=== PATIENT | female | born 1940 ===

== ENCOUNTER 2017-10-31 09:50 | Day surgery (SDC) | payer MEDICARE, OTHER ==
[~2017-10-31] VITALS: Ht 154.9 cm; Wt 72.3 kg
[~2017-10-31 09:50] MED LIST: 8 HOUR650 MG PO; ASCO500 PO; ATOR10 PO; ATORVASTATIN CA10 MG PO; AZO CRANBERRY250 MG PO; Advil200 M1 PO; Artificial Tea1 EACH BOTHEYES; Ativan1 MG PO; CALCAVITD PO; CHOL10002; Calcium Magnes1 EAC1 PO; DEEP SEA44 ML NS; ELIQUIS5 MG PO; FISH OIL 500 M1 EAC3 PO; Fish Oil300 MG PO; GARLIC PO; GLUC500 PO; Garlic Oil1000 MG PO; Glucosamine H1500 MG PO; IBUP400 PO; KETOROLAC TROMET5 ML OP; LORA1 PO; LOSARTAN POTASS50 MG PO; LOSARTAN-HCTZ1 EACH PO; METO50ER PO; MULVITMIND PO; Multiple Vitam1 EACH PO; NIAC500 PO; OMEPRAZOLE MAGN20 MG PO; OPTLUBOPO BOTHEYES; POTASSIUM GLU2.5 MEQ PO; POTASSIUM GLUC500 MG PO; PROBIOTIC1 EAC1 PO; PROBIOTIC1 EAC3 PO; ZINC15
== END 2017-10-31 12:00 | disposition home or self-care (01) ==
LOC: ORSCSDS 09:50
PROVIDERS: Surgery
PROC: 0DBH8ZX Excision of Cecum, Via Natural or Artificial Opening Endoscopic, Diagnostic (ICD-10-PCS; principal; 2017-10-31 11:00)
DX: Z12.11 Encounter for screening for malignant neoplasm of colon (principal); D12.0 Benign neoplasm of cecum; K57.30 Diverticulosis of large intestine without perforation or abscess without bleeding; I10 Essential (primary) hypertension; E78.5 Hyperlipidemia, unspecified; I48.1 Persistent atrial fibrillation; K21.9 Gastro-esophageal reflux disease without esophagitis; F41.9 Anxiety disorder, unspecified; Z79.01 Long term (current) use of anticoagulants; Z79.899 Other long term (current) drug therapy; Z87.891 Personal history of nicotine dependence
CPT/HCPCS: 88305; 93005; 93010; J7120

== ENCOUNTER → 2018-09-04 | Outpatient (CLI) | payer MEDICARE, OTHER | END | disposition home or self-care (01) | LOC: LAB SHORT 19:43 → LAB 19:43 | DX: N39.0 Urinary tract infection, site not specified (principal) | CPT/HCPCS: 87086 ==

== ENCOUNTER 2019-04-29 14:24 | Inpatient (IN) | payer MEDICARE, OTHER ==
[~2019-04-29] VITALS: Ht 152.4 cm; Wt 81.9 kg
[~2019-04-29 14:24] MED LIST changes: -8 HOUR650 MG PO; -ATOR10 PO; -AZO CRANBERRY250 MG PO; -Artificial Tea1 EACH BOTHEYES; -Ativan1 MG PO; -ELIQUIS5 MG PO
[2019-04-29] MEDS ORDERED: METO50ER PO (15:46)
[2019-04-29] MEDS ORDERED: ATOR10 PO (15:46)
[2019-04-29] MEDS ORDERED: FUROSEMIDE20 MG PO (15:48)
[2019-04-29] MEDS ORDERED: POTA10T PO (15:48)
[2019-04-29] MEDS ORDERED: LOSARTAN POTASS50 MG PO (15:48)
[2019-04-29] MEDS ORDERED: CALC.25 PO (15:50)
[2019-04-29] MEDS ORDERED: ELIQUIS5 MG PO (15:51)
[2019-04-29 15:55] LABS: BASOPHILS ABSOLUTE AUTO 0.02 K/mm3 (0.00-0.23); BASOPHILS PERCENT AUTO 0 % (0-2); EOSINOPHILS PERCENT AUTO 2 % (0-6); Hematocrit 37.5 % (33.0-51.0); IMMATURE GRAN ABSOLUTE AUTO 0.04 K/mm3 (0.00-0.10); IMMATURE GRAN PERCENT AUTO 1 % (0-1); LYMPHOCYTES PERCENT AUTO 16 % (21-46); MONOCYTES ABSOLUTE AUTO 1.18 K/mm3 (0.16-1.47); MONOCYTES PERCENT AUTO 13 % (4-13); Mean Corpuscular HGB 29.7 pg (26.0-34.0); Mean Corpuscular Volume 93 fL (80-100); Mean Platelet Volume 9.4 fL (9.1-12.4); NEUTROPHILS ABSOLUTE AUTO 6.03 K/mm3 (1.96-9.15); NEUTROPHILS PERCENT AUTO 68 % (41-73); Platelet Count 358 K/mm3 (150-400); RDW Coefficient Variation 14.3 % (11.7-14.2); Red Blood Cell Count 4.04 M/mm3 (3.80-5.20); White Blood Cell Count 8.87 K/mm3 (4.00-11.30)
[2019-04-29] MEDS ORDERED: Ativan1 MG PO (16:10)
[2019-04-29] MEDS ORDERED: ACET500 PO (16:10)
[2019-04-29] MEDS ORDERED: AZO CRANBERRY250 MG PO (16:10)
[2019-04-29] MEDS ORDERED: Artificial Tea1 EACH BOTHEYES (16:11)
[2019-04-29] MEDS ORDERED: SODCHL1 PO (16:12)
[2019-04-29] MEDS ORDERED: Allergy25 M1 PO (16:13)
[2019-04-29] MEDS ORDERED: TOBRADEX ST EYE5 ML LEFTEYE (16:15)
[2019-04-29 16:28] LABS: Alanine Aminotransfer (ALT/SGP 25 U/L (12-78); Albumin, Blood 3.3 g/dL (3.4-5.0); Albumin/Globulin Ratio 0.9 (0.8-1.8); Alk Phos 62 U/L (50-136); Anion Gap 6 mmol/L (6-16); Aspartate Aminotrans (AST/SGOT 19 U/L (12-37); Bilirubin, Total 0.6 mg/dL (0.1-1.0); Blood Urea Nitrogen 13 mg/dL (8-24); Bun/Creatinine Ratio 14.5 (12.0-20.0); CO2, Blood 25 mmol/L (21-32); Calcium, Blood 8.8 mg/dL (8.5-10.1); Chloride, Blood 104 mmol/L (98-108); Globulin, Blood 3.7 g/dL (2.2-4.0); Glomerular Filtration Rate >60 (60-); Glucose, Blood 115 mg/dL (70-99); Sodium, Blood 135 mmol/L (136-145)
[2019-04-29] MEDS ORDERED: VITAMIN C 500500 MG PO (20:06)
[2019-04-29] MEDS ORDERED: METO25ER PO (20:08)
[2019-04-29] MEDS ORDERED: ELIQUIS5 M2 PO (20:09)
--- NOTE | 2019-04-30 04:37 | NUR ---
SHIFT SUMMARY: PATIENT ARRIVED TO [facility] AT APPROX 1944 THIS SHIFT VIA GURNEY FROM ER. PATIENT ALERT AND ORIENTED WITH AT BEDSIDE. PATIENT ABLE TO PIVOT TRANSFER FROM GURNEY TO BED WITH 2 PERSON ASSIST, PATIENT SOB AND VERY ANXIOUS (O2 SATURATIONS >94%). PATIENT ADMISSION COMPLETED. PATIENT ORIENTED TO CALL LIGHT, HOSPITAL POLICIES AND UNIT. PATIENT CARDIZEM DRIP INCREASED TO 15ML/HR D/T SUSTAINED HR RANGING FROM 140 BPM TO 170 BPM. APPROX 0200 PATIENT HR HAS SLOWLY DECREASED TO A RANGE FROM 90'S TO 110 BPM, CARDIZEM TURNED DOWN TO 10ML/HR. PATIENT BREATHING IS SLOWER AND MORE EFFECTIVE AND PATINET ABLE TO GET TO BSC WITH ONLY 1 PERSON MINIMAL ASSIST. PATIENT HAS FREQUENT NEED TO URINATE, APPROX EVERY 30 MINUTES TO 1 HOUR. VSS, CALL LIGHT WITHIN REACH, BED LOW AND LOCKED AND AT BEDSIDE.
[2019-04-30 05:06] LABS: Bun/Creatinine Ratio 18.8 (12.0-20.0); Calcium, Blood 8.7 mg/dL (8.5-10.1); Creatinine, Blood 0.96 mg/dL (0.40-1.00); Potassium, Blood 4.4 mmol/L (3.5-5.5)
--- NOTE | 2019-04-30 19:27 | NUR ---
SHIFT SUMMARY PT A&Ox4, ANXIOUS BUT COOPERTAIVE WITH CARE, MEDICCATED x1 WITH ATIVAN. PT REPORTS FEELING TIRED T/O SHIFT, STATES SHE DID NOT SLEEP, ATTEMPTED TO ALLOW PT TO SLEEP T/O SHIFT, PT CALLED TO GET UP TO BSC OR VISITORS. PT SOB WITH EXERTION, SPO2 >94% ON 2L O2 VIA NC, WHEN ATTEMPTED TO TAKE O2 OFF THIS AM, PT SAT 88-90% ON RA. PT DENIES NAUSEA AND PAIN T/O SHIFT. HR 100-110'S THIS AM, TRENDING UP THIS AFTERNOON 120-130, TITRATED CARDIZEM TO 15MG/HR, AT 1845 AVERAGING 105 PER TELE. BP ELEVATED THIS AFTERNOON, MEDICATED PER EMAR. OTHER VSS. NO OTHER ACUTE CHANGES NOTED DURING SHIFT. WILL CONTINUE TO MONITOR. UNTIL REPORT GIVEN TO ONCOMING RN.
--- NOTE | 2019-05-01 01:57 | NUR ---
IV INFILTRATED AT AROUND 0000 HRS PT'S IV (RIGHT FOREARM) NOTED TO BE INFILTRATED, CARDIZEM DRIP STOPPED. D/T HX THIS VISIT OF MULTIPLE FAILED IV ATTEMPTS CALLED FOR RN EXPERIENCED WITH ULTRASOUND TO START NEW IV. PT'S HR REMAINS BETWEEN 90 AND 100 PER CHANDELIER MAKER FOR 2 HRS OFF CARDIZEM DRIP. WILL CONTINUE TO MONITOR
--- NOTE | 2019-05-01 06:31 | NUR ---
SHIFT SUMMARY PT AWAKE, ALERT AND ORIENTED IN BED AT BEGINNING OF SHIFT, IN ROOM, BUT LEFT FOR HOME AROUND 8PM. STANDBY ASSIST TO COMMODE 4X THIS SHIFT, PT COOPERATING WITH VOIDING SCHED Q2 HRS OR GREATER. PT SOB WITH EXERTION BUT TOLERATING TRANSFERS WELL. PT ON CARDIZEM DRIP AT ONSET OF SHIFT, TITRATED FROM 15 TO 10 MG/HR, THEN DISCONTINUED AND REPLACED WITH ORAL CARDIZEM AROUND 0000 HRS, D/T HR STABLE AT 90-100 CONSISTENTLY. ALL OTHER VSS T/O. AROUND 10PM PT'S IV TO RT FOREARM BECAME INFILTRATED, NEW IV START 20G IN RT ARM W DOPPLER ASSIST, ONE ATTEMPT, NO ISSUES. MEDICATED PER MD ORDER AND UNIT PROTOCOL, WILL CONTINUE TO MONITOR UNTIL PASSING REPORT AND CARE TO ONCOMING SHIFT. BED LOCKED AND LOW, CALL LIGHT W/IN REACH
--- NOTE | 2019-05-01 17:46 | NUR ---
SHIFT SUMMARY PT A&Ox4, ANXIOUS BUT COOPERATIVE WITH CARE. MEDICATED x1 WITH ATIVAN. TEARFUL AT TIMES.PT SBA TO BSC THIS AM,UP TO BR THIS AFTERNOON W/SBA.PT SOB W/EXERTION TITRATED TO RA, THIS AFTERNOON. SPO2 >92% ON RA. RT AT BEDSIDE TO EDUCATED PT WITH FLUTTER AND IS. PT DENIES PAIN AND NAUSEA. PT RECEIVING PO CARDIZEM, PT TELE A/FIB/AFLUTTER 80-110'S FOR MAJORITY OF SHIFT. VSS. NO OTHER ACUTE CHANGES NOTED DURING SHIFT. WILL CONTINUE TO MONITOR UNTIL REPORT GIVEN TO ONCOMING RN.
--- NOTE | 2019-05-01 20:55 | NUR ---
ASSUMED CARE OF PATIENT AT COUNT INCLUDES THE [facility] 190 FROM HEIDY Lowry RN. PATIENT ALERT AND ORIENTED X4; FORGETFUL AT TIMES; SLOW TO RESPOND AT TIMES, ANXIOUS. PATIENT DENIES PAIN, NUMBNESS, TINGLING, DIZZINESS AND NAUSEA. AFLUTTER OR AFIB ON TELE W/ RATE OF 90-110; OXYGEN SATURATION ABOVE 90% ON ROOM AIR; DYSPNEA MOVING IN BED; PATIENT'S REPORTS PATIENT HAS BEEN SOB FOR A WHILE NOW. PATIENT ONE ASSIST W/ FWW OUT OF BED. AT BEDSIDE AT START OF SHIFT, JUST LEFT FOR THE NIGHT. PIV S/L. PATIENT CURRENTLY RESTING IN BED; CALL LIGHT IN REACH; BED IN LOWEST POSISTION; BED ALARM ON; WILL CONTINUE TO MONITOR AND ASSESS UNTIL END OF SHIFT.
--- NOTE | 2019-05-02 06:07 | NUR ---
PATIENT SLEPT ABOUT EIGHT HOURS LAST NIGHT. VSS. NO ACUTE CHANGES TO REPORT. WILL CONTINUE TO MONITOR AND ASSESS UNTIL END OF SHIFT.
--- NOTE | 2019-05-02 09:01 | NUR ---
tearful, nurse reminds her of son who , did not sleep well due to urine urgancy/frequency/lasix, medicated as prescribed, vss, edemonous, call light in reach, rm air, iv flushed no s/sx of infiltration or infection, will continue to monitor and treat as prescribed
--- NOTE | 2019-05-02 17:48 | NUR ---
A+O, COOPERATIVE WITH CARE, LOVES TO TELL JOKES, CALL LIGHT IN REACH, SALINE LOCKED, UP FREQUENTLY TO BATHROOM, 1 PERSON STANDBY ASSIST WITH WALKER AND BELT, MEDICATED PRESCRIBED, WORKED WITH PT AND OT, REMAINS EDEMONUS WITH BRUISES ON BOTH ARMS
[2019-05-02 18:12] LABS: Source, Urine Clean Catch
[2019-05-02 18:33] LABS: Appearance, Urine Hazy (Clear); Bilirubin, Urine Neg (Neg); Blood, Urine 2+ (Neg); Color, Urine Yellow (P-Yellow); Glucose Qualitative, Urine Neg (Neg); Ketones, Urine Neg (Neg); Leukocyte Esterase, Urine 3+ (Neg); Nitrite, Urine Neg (Neg); Protein, Urine 2+ (Neg); Urobilinogen, Urine NORM (Normal)
[2019-05-02 19:10] LABS: Squamous Epithelial Cells Many /hpf (Few); White Blood Cells, Urine TNTC /hpf (0-5)
[2019-05-02 19:11] LABS: Bacteria Mod /hpf
--- NOTE | 2019-05-02 21:45 | NUR ---
ASSUMED CARE OF PATIENT AT [facility] 1905 FROM WAI Gonzalez RN. PATIENT ALERT AND ORIENTED X4; FORGETFUL AT TIMES; SLOW TO RESPOND AT TIMES, ANXIOUS. PATIENT DENIES PAIN, NUMBNESS, TINGLING, DIZZINESS AND NAUSEA. AFLUTTER OR AFIB ON TELE W/ RATE OF 90-110; OXYGEN SATURATION ABOVE 90% ON ROOM AIR. DYSPNEA MOVING IN BED; PATIENT'S AT BEDSIDE FOR FIRST HOUR OF SHIFT. PATIENT ONE ASSIST W/ FWW OUT OF BED. PIV S/L. PATIENT CURRENTLY RESTING IN BED; CALL LIGHT IN REACH; BED IN LOWEST POSISTION; BED ALARM ON; WILL CONTINUE TO MONITOR AND ASSESS UNTIL END OF SHIFT.
--- NOTE | 2019-05-03 06:32 | NUR ---
PATIENT SLEPT ABOUT EIGHT HOURS LAST NIGHT. PATIENT URINATED FREQUENTLY; CONCERNED ABOUT HAVING TO WALK HALLWAY WITH HAIR MESSY; ETYMOLOGY PROFESSOR DID PATIENT'S HAIR. VSS. NO OTHER ACUTE CHANGES TO REPORT. WILL CONTINUE TO MONITOR AND ASSESS UNTIL END OF SHIFT.
--- NOTE | 2019-05-03 09:39 | NUR ---
HEART RATE: PER PCU TECH, PATIENT HR IS IN LOW 100S. CURRENTLY 104. NOTED PRIOR TO AM MEDICATION ADMINISTRATION.
--- NOTE | 2019-05-03 10:40 | NUR ---
MORNING ASSESSMENT: PATIENT REPORTS FEELING BETTER THIS MORNING. DENIES PAIN, SOB OR RESPIRATORY DISTRESS. MILD DYSPNEA NOTED WITH AMBULATION TO THE RESTROOM. PATIENT STEADY ON FEET. USES WALKER AND CALL LIGHT APPROPRIATELY. NO CONFUSION NOTED THIS MORNING. PATIENT CONTINUES TO HAVE HR OVER 100. DR. LITTLE ROUNDED ON PATIENT AND PLACED NEW ORDERS FOR CARDIZEM. PATIENT DENIES CHEST PAIN OR DISCOMFORT. PATIENT AMBULATED TO THE RESTROOM MULTIPLE TIMES AND IN THE HALLWAY WITH PT. PATIENT REQUESTING TO BE ABLE TO REST THIS AM. AT BEDSIDE. ASSISTED TO BED WITH FEET ELEVATED AND PROVIDED A QUIET AND DARK ENVIRONMENT.
[2019-05-03 14:08] LABS: Albumin, Blood 3.2 g/dL (3.4-5.0); Anion Gap 8 mmol/L (6-16); Blood Urea Nitrogen 21 mg/dL (8-24); Bun/Creatinine Ratio 25.3 (12.0-20.0); CO2, Blood 26 mmol/L (21-32); Calcium, Blood 9.5 mg/dL (8.5-10.1); Chloride, Blood 100 mmol/L (98-108); Creatinine, Blood 0.83 mg/dL (0.40-1.00); Glomerular Filtration Rate >60 (60-); Glucose, Blood 115 mg/dL (70-99); Magnesium, Blood 1.8 mg/dL (1.6-2.4); Phosphorus, Blood 4.1 mg/dL (2.5-4.9); Potassium, Blood 4.1 mmol/L (3.5-5.5); Sodium, Blood 134 mmol/L (136-145)
--- NOTE | 2019-05-03 17:36 | NUR ---
END OF SHIFT REPORT: PATIENT REPORTS THAT SHE IS FEELING BETTER TODAY. PATIENT WORKED WITH PT AND HAS WALKED IN THE [place] MULTIPLE TIMES. PATIENT STEADY ON HER FEET. PATIENT CALLING APPROPRIATELY. MILD SOB NOTED AFTER AMBULATION. INCREASE IN HR 10-15 BPM DURING AMBULATION. PATIENT'S HEART RATE HAS IMPROVED WITH THE INCREASE IN CARDIZEM. PATIENT IS NOW IN THE LOW 100S AT REST. PATIENT CONTINUES TO DENY CP OR DISCOMFORT, RESPIRATORY DISTRESS, SOB, OR PAIN. PATIENT IS LOOKING FORWARD TO GOING HOME TOMORROW.
--- NOTE | 2019-05-04 05:20 | NUR ---
SHIFT SUMMARY AOX4. LS DIM IN BASES, DENIES SOB. 94-98% ON RA. NO C/O NAUSEA OR PAIN. 1+ EDEMA IN BLE'S. L FA IV SL. TELE READS AFIB 104. SBA TO BATHROOM. PRN ATIVAN GIVEN @ 0150. NO OTHER PRNS GIVEN. VSS. PLAN IS TO DC TODAY.
[2019-05-04] MEDS ORDERED: DILT180 PO (14:51)
--- NOTE | 2019-05-04 15:53 | NUR ---
PT DISCHARGED AT 1510 WITH FRIEND TO TRANSPORT. PT HAD ALL PAPERS REVIEWED AND EDUCATIONAL MATERIAL SENT. PT HAD IV REMOVED AND WAS ESCORTED VIA WHEEL CHAIR TO [facility]. PERSONAL BELONGING WERE TAKEN WITH HER. NO DISTRESS NOTED, PT WAS AOX4 AND COOPERATIVE WITH ALL CARE.
== END 2019-05-04 15:58 | disposition home or self-care (01) | DRG 308 ==
LOC: ER 14:24 → PCU 14:25
PROVIDERS: Physician Assistant; ADMIT Family Medicine
DX: I48.19 Other persistent atrial fibrillation (principal); J96.01 Acute respiratory failure with hypoxia; I50.33 Acute on chronic diastolic (congestive) heart failure; E87.1 Hypo-osmolality and hyponatremia; I11.0 Hypertensive heart disease with heart failure; E78.5 Hyperlipidemia, unspecified; Z87.891 Personal history of nicotine dependence; Z66 Do not resuscitate
CPT/HCPCS: 36415; 36430; 80048; 80053; 80069; 81001; 83735; 83880; 84443; 84484; 85025; 87077; 87086; 87186; 93005; 93010; 93306; 94640; 94667; 94760; 96365; 96366; 96375; 97116; 97162; 97166; 97530; 97535; 99285-25; A9270; G0378; J0360; J1940

== ENCOUNTER → 2019-08-27 | Outpatient (CLI) | payer MEDICARE, OTHER ==
[~2019-08-27] MED LIST changes: +ACET500 PO; +ATOR10 PO; +AZO CRANBERRY250 MG PO; +Allergy25 M1 PO; +Artificial Tea1 EACH BOTHEYES; +Ativan1 MG PO; +CALC.25 PO; +DILT180 PO; +ELIQUIS5 M2 PO; +ELIQUIS5 MG PO; +FUROSEMIDE20 MG PO; +METO25ER PO; +POTA10T PO; +SODCHL1 PO; +TOBRADEX ST EYE5 ML LEFTEYE; +VITAMIN C 500500 MG PO
== END | disposition home or self-care (01) ==
LOC: LAB SHORT 12:00 → LAB 12:00
DX: L02.211 Cutaneous abscess of abdominal wall (principal)
CPT/HCPCS: 87070; 87077; 87147; 87186; 87205

== ENCOUNTER → 2021-10-05 | Outpatient (CLI) | payer MEDICARE, OTHER ==
[~2021-10-05] MED LIST changes: +ACET325 PO; +AMOCLA500 PO; +HYDCHL25 PO; +VISBIOME 112.51 EACH PO
== END | disposition home or self-care (01) ==
LOC: LAB 15:45 → LAB SHORT 15:45
DX: N39.0 Urinary tract infection, site not specified (principal)
CPT/HCPCS: 87086

== ENCOUNTER → 2021-11-07 | Outpatient (CLI) | payer MEDICARE, OTHER | END | disposition home or self-care (01) | LOC: LAB 14:15 → LAB SHORT 14:15 | DX: N39.0 Urinary tract infection, site not specified (principal) | CPT/HCPCS: 87077; 87086; 87186 ==

== ENCOUNTER → 2021-12-08 | Outpatient (CLI) | payer MEDICARE, OTHER | END | disposition home or self-care (01) | LOC: LAB SHORT 11:34 → LAB 11:34 | DX: R31.9 Hematuria, unspecified (principal) | CPT/HCPCS: 87077; 87086; 87186 ==

== ENCOUNTER → 2022-06-09 | Outpatient (CLI) | payer MEDICARE, OTHER | END | disposition home or self-care (01) | LOC: LAB SHORT 14:54 → LAB 14:54 | DX: N39.0 Urinary tract infection, site not specified (principal) | CPT/HCPCS: 87077; 87086; 87186 ==

== ENCOUNTER → 2022-11-10 | Outpatient (CLI) | payer MEDICARE, OTHER ==
[2022-11-10 16:57] LABS: CHOL/HDL RATIO 3.9; Cholesterol 154 mg/dL (50-200); HDL Cholesterol 39 mg/dL (>39); LDL/HDL RATIO 1.9; Low Density Lipoprotein Chol 72 mg/dL (0-110); Triglycerides 213 mg/dL (30-160); Very Low Density Lipoprot Chol 42 mg/dL (6-32)
== END | disposition home or self-care (01) ==
LOC: LAB SHORT 14:17 → LAB 14:17
PROVIDERS: Nurse Practitioner Family
DX: Z13.29 Encounter for screening for other suspected endocrine disorder (principal); E78.00 Pure hypercholesterolemia, unspecified
CPT/HCPCS: 80061; 84443

== ENCOUNTER → 2023-03-01 | Outpatient (CLI) | payer MEDICARE, OTHER | END | disposition home or self-care (01) | LOC: LAB SHORT 12:48 → LAB 12:48 | DX: N39.0 Urinary tract infection, site not specified (principal) | CPT/HCPCS: 87077; 87086; 87186 ==

== ENCOUNTER → 2023-03-11 | Outpatient (CLI) | payer MEDICARE, OTHER | END | disposition home or self-care (01) | LOC: LAB 11:14 | DX: R11.2 Nausea with vomiting, unspecified (principal) ==

== ENCOUNTER → 2023-04-02 | Outpatient (CLI) | payer MEDICARE, OTHER ==
[2023-04-02 18:02] LABS: Adenovirus F 40/41 Not Detected (NOT DETECT); Astrovirus Not Detected (NOT DETECT); Campylobacter Sp Not Detected (NOT DETECT); Cryptosporidium Not Detected (NOT DETECT); Cyclospora Cayetanensis Not Detected (NOT DETECT); E. Coli O157 Not Detected (NOT DETECT); Entamoeba Histolytica Not Detected (NOT DETECT); Enteroaggregative E. coli-EAEC Not Detected (NOT DETECT); Enteropathogenic E. coli-EPEC Not Detected (NOT DETECT); Enterotoxigenic E. coli-ETEC Not Detected (NOT DETECT); Giardia Lamblia Not Detected (NOT DETECT); Norovirus GI/GII Not Detected (NOT DETECT); Plesiomonas Shigelloides Not Detected (NOT DETECT); Rotavirus A Not Detected (NOT DETECT); Salmonella Sp Not Detected (NOT DETECT); Sapovirus Not Detected (NOT DETECT); Shiga Toxin-prod E. coli-STEC Not Detected (NOT DETECT); Shigella/Enteroin E. coli-EIEC Not Detected (NOT DETECT); Vibrio Cholerae Not Detected (NOT DETECT); Vibrio Sp Not Detected (NOT DETECT); Yersinia Enterocolitica Not Detected (NOT DETECT)
== END | disposition home or self-care (01) ==
LOC: LAB SHORT 08:32 → LAB 08:32
PROVIDERS: Physician Assistant
DX: R30.0 Dysuria (principal); R19.7 Diarrhea, unspecified
CPT/HCPCS: 87086; 87507

== ENCOUNTER → 2023-04-13 | Outpatient (CLI) | payer MEDICARE, OTHER ==
[2023-04-13 17:33] LABS: Bun/Creatinine Ratio 14.9 (12.0-20.0); Calcium, Blood 8.9 mg/dL (8.5-10.1); Creatinine, Blood 0.74 mg/dL (0.40-1.00); Potassium, Blood 4.1 mmol/L (3.5-5.5)
== END | disposition home or self-care (01) ==
LOC: LAB 14:00 → LAB SHORT 14:00
PROVIDERS: Nurse Practitioner Family
DX: N39.0 Urinary tract infection, site not specified (principal)
CPT/HCPCS: 80048; 87086

== ENCOUNTER → 2023-07-12 | Outpatient (CLI) | payer MEDICARE, OTHER | LOC: LAB 14:30 → LAB SHORT 14:30 | DX: N39.0 Urinary tract infection, site not specified (principal) | CPT/HCPCS: 87086 ==

== ENCOUNTER → 2023-11-06 | Outpatient (CLI) | payer MEDICARE, OTHER | LOC: LAB SHORT 17:26 → LAB 17:26 | DX: N39.0 Urinary tract infection, site not specified (principal) | CPT/HCPCS: 87086 ==

== ENCOUNTER → 2024-02-14 | Outpatient (CLI) | payer MEDICARE, OTHER | LOC: LAB 14:13 → LAB SHORT 14:13 | DX: N39.0 Urinary tract infection, site not specified (principal) | CPT/HCPCS: 87077; 87086; 87186 ==

== ENCOUNTER → 2025-02-27 | Outpatient (CLI) | payer MEDICARE ==
[2025-02-27 18:24] LABS: BASOPHILS ABSOLUTE AUTO 0.04 K/mm3 (0.00-0.23); BASOPHILS PERCENT AUTO 1 % (0-2); EOSINOPHILS ABSOLUTE AUTO 0.22 K/mm3 (0.00-0.68); EOSINOPHILS PERCENT AUTO 3 % (0-6); Hematocrit 38.8 % (33.0-51.0); Hemoglobin 12.7 g/dL (11.5-16.0); IMMATURE GRAN ABSOLUTE AUTO 0.02 K/mm3 (0.00-0.10); IMMATURE GRAN PERCENT AUTO 0 % (0-1); LYMPHOCYTES ABSOLUTE AUTO 1.97 K/mm3 (0.84-5.20); LYMPHOCYTES PERCENT AUTO 27 % (21-46); MONOCYTES ABSOLUTE AUTO 0.93 K/mm3 (0.16-1.47); MONOCYTES PERCENT AUTO 13 % (4-13); Mean Corpuscular HGB Conc 32.7 g/dL (31.5-36.5); Mean Corpuscular Volume 95 fL (80-100); NEUTROPHILS ABSOLUTE AUTO 4.20 K/mm3 (1.96-9.15); NEUTROPHILS PERCENT AUTO 57 % (41-73); NRBC ABSOLUTE 0.00 K/mm3 (0.00-0.02); NRBC Auto 0.0 /100 WBC (0.0-0.2); Platelet Count 330 K/mm3 (150-400); RDW Coefficient Variation 13.2 % (11.7-14.2); RDW Standard Deviation 45.6 fL (35.1-46.3)
[2025-02-27 19:00] LABS: Alanine Aminotransfer (ALT/SGP 15 U/L (12-78); Albumin, Blood 3.7 g/dL (3.4-5.0); Albumin/Globulin Ratio 1.0 (0.8-1.8); Anion Gap 12 mmol/L (3-11); Aspartate Aminotrans (AST/SGOT 15 U/L (12-37); Bilirubin, Total 0.3 mg/dL (0.1-1.0); Blood Urea Nitrogen 15 mg/dL (8-24); CHOL/HDL RATIO 6.0; CO2, Blood 24 mmol/L (21-32); Calcium, Blood 9.3 mg/dL (8.5-10.1); Chloride, Blood 106 mmol/L (98-108); Cholesterol 215 mg/dL (50-200); Creatinine, Blood 0.97 mg/dL (0.40-1.00); Ferritin, Serum 117 ng/mL (8-252); Globulin, Blood 3.6 g/dL (2.2-4.0); Glucose, Blood 113 mg/dL (70-99); HDL Cholesterol 36 mg/dL (>39); LDL/HDL RATIO 3.8; Low Density Lipoprotein Chol 137 mg/dL (0-110); Potassium, Blood 3.9 mmol/L (3.5-5.5); Sodium, Blood 138 mmol/L (136-145); Thyroid Stimulating Hormone 2.480 uIU/mL (0.360-4.800); Total Iron Binding Capacity 216 ug/dL (250-450); Total Protein, Blood 7.3 g/dL (6.4-8.2); Triglycerides 211 mg/dL (30-160); Very Low Density Lipoprot Chol 42 mg/dL (6-32)
== END | disposition home or self-care (01) ==
LOC: LAB 17:14 → LAB SHORT 17:14
PROVIDERS: Nurse Practitioner Family
DX: I50.9 Heart failure, unspecified (principal); E78.5 Hyperlipidemia, unspecified; Z79.899 Other long term (current) drug therapy
CPT/HCPCS: 80053; 80061; 82728; 83540; 83550; 83880; 84443; 85025

== ENCOUNTER → 2025-03-04 | Outpatient (CLI) | payer MEDICARE ==
[2025-03-04 17:18] LABS: Campylobacter Sp Not Detected (NOT DETECT); E. Coli O157 Not Detected (NOT DETECT); Enteroaggregative E. coli-EAEC Not Detected (NOT DETECT); Enteropathogenic E. coli-EPEC Not Detected (NOT DETECT); Enterotoxigenic E. coli-ETEC Not Detected (NOT DETECT); Salmonella Sp Not Detected (NOT DETECT); Shiga Toxin-prod E. coli-STEC Not Detected (NOT DETECT); Shigella/Enteroin E. coli-EIEC Not Detected (NOT DETECT); Vibrio Sp Not Detected (NOT DETECT)
== END | disposition home or self-care (01) ==
LOC: LAB 08:52 → LAB SHORT 08:52
PROVIDERS: Nurse Practitioner Family
DX: R19.7 Diarrhea, unspecified (principal)
CPT/HCPCS: 87507